=== PATIENT | female | born 1945 | race Hispanic/Latino ===

== ENCOUNTER 2018-07-06 09:08 | Observation (INO) | payer OTHER ==
[2018-07-05 17:07] LABS: APPEARANCE,URINE Clear (CLEAR); BILIRUBIN,URINE Negative (NEGATIVE); COLOR,URINE Dark Yellow (YELLOW); GLUCOSE, URINE (UA) Negative (NEGATIVE); KETONES,URINE Negative (NEGATIVE); LEUKOCYTE ESTERASE ,URINE Negative (NEGATIVE); NITRATE,URINE Positive (NEGATIVE); OCCULT BLOOD,URINE Negative (NEGATIVE); PROTEIN,URINE Negative (NEGATIVE)
[2018-07-05 17:35] LABS: RBC,URINE 0-1 /HPF (0-1)
[2018-07-05 17:36] LABS: BACTERIA,URINE Moderate /HPF (None Seen); SQUAMOUS EPITHELIAL CELL,UR Few /HPF (0-2)
[2018-07-05 17:45] VITALS: BP 175/78
--- NOTE | 2018-07-05 18:05 | NUR ---
UA REPORTED TO DR GARCIA POSITIVE NITRITES IN UA, ORDERS RECEIVED, REPORTED THAT PATIENT HAS A SCRATCH TO LEFT THIGH AREA, DR GARCIA STATED HE WILL EVALUATE IN MORNING, CALL PATIENT TO LET HER KNOW THERE IS A POSSIBILITY SURGERY COULD GET CANCELED
--- NOTE | 2018-07-05 18:18 | NUR ---
PATIENTS SON LORI LUTZ NOTIFIED THAT BECAUSE OF THE SCRATCH TO LEFT THIGH THERE IS A POSSIBILITY THAT SURGERY COULD BE CANCELED, LORI VERBALIZED UNDERSTANDING
[2018-07-06] VITALS (22 sets, daily range): BP systolic 119–170; BP diastolic 57–85
[~2018-07-06] VITALS: Ht 152.4 cm; Wt 84.4 kg
[~2018-07-06 09:08] MED LIST: ACET650T9 PO; CARB15DR54 OP; CYAN25002 SL; FOLI1TAB15 PO; GENTAMICIN SULFATE 240 MG in SODIUM CHLORIDE 0.9% 100 ML IV SCH; HYDR200T4 PO; METO50TA18 PO; SULF500T8 PO; TRAM50TA4 PO
--- NOTE | 2018-07-06 09:41 | NUR ---
POTENTIAL FOR INFECTION: SHAVED LEFT KNEE / LEG FOLLOWED BY WITH WITH [facility]: 2% CHLORHEXIDINE GLUCONATE CLOTH PATIENTS PRE-OP SKIN PREP PER RONEL YODER MA.
[2018-07-06] MEDS ORDERED: LACTATED RINGERS 1000ML 1,000 ML IV ONE (10:10)
[2018-07-06] MEDS: CEFAZOLIN SODIUM 1 GM VIAL ONE ×2 (10:22→13:40)
[2018-07-06] MEDS ORDERED: KETOROLAC TROMETHAMINE 15MG/ML ONE (11:26)
[2018-07-06] MEDS ORDERED: CELECOXIB 200 MG CAP ONE (11:26)
[2018-07-06] MEDS ORDERED: OXYCODONE HCL 10 MG TAB.SR.12H PO ONE (11:26)
[2018-07-06] MEDS ORDERED: ACETAMINOPHEN EXTRA STRENGTH 500 MG TABLET ONE (11:26)
[2018-07-06] MEDS ORDERED: TRANEXAMIC ACID 1000MG/10ML IV ONE ×2 (11:42→16:19)
[2018-07-06] MEDS ORDERED: CEFAZOLIN SODIUM 1 GM VIAL ONE (11:42)
[2018-07-06] MEDS ORDERED: LIDOCAINE PF 2% 5ML ABBOJECT ONE ×2 (13:05→15:34)
[2018-07-06] MEDS ORDERED: NEOSTIGMINE 5MG/5ML SYR IV ONE (13:05)
[2018-07-06] MEDS ORDERED: DEXAMETHASONE SOD PHOSPHATE 10MG/ML 1ML VIAL ONE (13:05)
[2018-07-06] MEDS ORDERED: ONDANSETRON HCL 4 MG/2 ML VIAL ONE (13:05)
[2018-07-06] MEDS ORDERED: MIDAZOLAM HCL 1 MG/ML 2ML VIAL ONE (13:05)
[2018-07-06] MEDS ORDERED: PROPOFOL 10 MG/ML 20ML VIAL IV ONE ×2 (13:05→14:41)
[2018-07-06] MEDS ORDERED: SUCCINYLCHOLINE 200MG/10ML SYR ONE (13:05)
[2018-07-06] MEDS ORDERED: GLYCOPYRROLATE 1 MG/5 ML SYRINGE ONE (13:05)
[2018-07-06] MEDS ORDERED: ROCURONIUM 10MG/1ML SYR 10 MG/ML ML ONE ×2 (13:06→13:59)
[2018-07-06] MEDS ORDERED: FENTANYL CITRATE PF 50 MCG/1 ML 2ML VIAL ONE ×3 (13:06→15:02)
[2018-07-06] MEDS ORDERED: CEFAZOLIN SODIUM 1 GM VIAL IRRIG ONE (14:20)
[2018-07-06] MEDS ORDERED: KETOROLAC TROMETHAMINE 30MG/ML ONE (15:09)
[2018-07-06] MEDS ORDERED: POTASSIUM CHLORIDE 20MEQ/100ML 100 ML IV PRN (15:15)
[2018-07-06] MEDS ORDERED: TRAMADOL HCL 50 MG TABLET PO PRN (15:15)
[2018-07-06] MEDS ORDERED: CALCIUM CARBONATE 500 MG TABLET PO PRN (15:15)
[2018-07-06] MEDS ORDERED: POTASSIUM CHLORIDE 10% ELIXIR 20 MEQ/15 ML UDCUP PO PRN (15:15)
[2018-07-06] MEDS ORDERED: ONDANSETRON HCL 4 MG/2 ML VIAL IVP PRN (15:15)
[2018-07-06] MEDS ORDERED: POTASSIUM CHLORIDE 20 MEQ ERTAB PO PRN (15:15)
[2018-07-06] MEDS ORDERED: OXYCODONE HCL 5 MG TAB PO PRN (15:15)
[2018-07-06] MEDS ORDERED: TEMAZEPAM 15 MG CAPSULE PO PRN (15:15)
[2018-07-06] MEDS ORDERED: KETOROLAC TROMETHAMINE 15MG/ML IV PRN (15:15)
[2018-07-06] MEDS ORDERED: DiphenhydrAMINE HCL 50 MG/ML VIAL IVP PRN (15:15)
[2018-07-06] MEDS ORDERED: FERROUS FUMARATE 324 MG TABLET PO PRN (15:15)
[2018-07-06] MEDS: ACETAMINOPHEN EXTRA STRENGTH 500 MG TABLET PO SCH ×2 (15:15→20:17)
[2018-07-06] MEDS ORDERED: LIDOCAINE HCL-MPF 1% 2ML VIAL IVP PRN (15:15)
--- NOTE | 2018-07-06 17:00 | NUR ---
IA AND REFERRAL MET WITH PT/FAM IN ROOM, S/P TKA, STILL SLEEP BUT APPROPRIATE. PT STATES [facility] WOULD BE GOING TO A FACLITY- LIVES ALONE, INDP OF ADLS , STD WKR, NO OTHER DME, NO HH NO PROV SERVICE,S [facility]ANY[facility] FOR [facility]AMA, REFERRALSENT AND CALL TO [facility] Addendum: 07/07/18 at 7553 by LEONARDO MOREL RN CM Amended: Links added.
--- NOTE | 2018-07-06 17:31 | NUR ---
POST SURGERY PATIENT RECEIVED FROM PACU IN STABLE CONDITION. SHE IS AWAKE AND ALERT. FAMILY IS PRESENT AT BEDSIDE. ALL HAVE BEEN ORIENTED TO ROOM AND USE OF CALL LIGHT. DRESSING TO THE LEFT KNEE IS DRY AND INTACT. IV IS PATENT INFUSING FLUIDS WITH NO REDNESS OR SWELLING NOTED. BED IS IN LOWEST POSITION AND LOCKED WITH PERSONAL BELONGINGS WITHIN REACH. POST OP V/S INITIATED. WILL CONTINUE TO MONITOR.
[2018-07-06] MEDS: OXYCODONE HCL 5 MG TAB PO PRN ×2 (18:35→21:53)
[2018-07-06] MEDS: SODIUM CHLORIDE 0.9% 1000ML 1,000 ML IV SCH (18:37)
[2018-07-06] MEDS ORDERED: CARBOXYMETHYLCELLULOSE SODIUM OP SCH (18:45)
--- NOTE | 2018-07-06 20:00 | NUR ---
nursing obs patient awake, alert, ox3, no sob, no c/o pain at this time, encourage patient to take deep breathing exercises, left knee with beatriz bandage d/i, ble teds and scds in place, family at bedside, teach plan of care and expected outcome,both verbalize understanding via teach back
[2018-07-06] MEDS: FAMOTIDINE 20MG TAB 20 MG TAB PO SCH (20:16)
[2018-07-06] MEDS: CEFAZOLIN SODIUM 1 GM VIAL IVP SCH (20:16)
[2018-07-06] MEDS: ASPIRIN 325 MG TABLET PO SCH (20:16)
[2018-07-06] MEDS: PREGABALIN 25 MG CAP PO SCH (20:16)
[2018-07-06] MEDS: METOPROLOL TARTRATE 50 MG TAB PO SCH (20:16)
[2018-07-06] MEDS: CELECOXIB 200 MG CAP PO SCH (20:17)
[2018-07-06] MEDS: SULFASALAZINE 500 MG TAB.DR PO SCH (20:17)
[2018-07-07] MEDS: SODIUM CHLORIDE 0.9% 1000ML 1,000 ML IV SCH ×2 (00:37→11:08)
[2018-07-07 04:05] VITALS: BP 140/65
[2018-07-07 04:09] LABS: HEMATOCRIT 31.6 % (36-48); MEAN CORPUSCULAR HEMOGLOBIN 31.3 pg (27.0-33.0); MEAN CORPUSCULAR HGB CONC 34.3 g/dL (32.0-36.0); MEAN CORPUSCULAR VOLUME 91.3 fL (79-99); NUCLEATED RED BLOOD CELLS 0.1 % (0.0-0.19); PLATELET COUNT (AUTO) 208 K/uL (130-400); RED BLOOD CELL COUNT(AUTO) 3.46 MIL/uL (4.00-5.50); WHITE BLOOD COUNT (AUTO) 6.2 K/uL (4.8-10.8)
[2018-07-07] MEDS: CEFAZOLIN SODIUM 1 GM VIAL IVP SCH (04:09)
[2018-07-07 04:31] LABS: CREATININE 0.7 mg/dL (0.5-1.5)
[2018-07-07] MEDS: ACETAMINOPHEN EXTRA STRENGTH 500 MG TABLET PO SCH ×2 (06:20→14:52)
--- NOTE | 2018-07-07 08:00 | NUR ---
Pt's last BM 06/29; she stated this is consistent with her history and she has been like this "my entire life"; stated she will go when she feels the urge. Addendum: 07/07/18 at 2037 by SHIRLEY HERNANDEZ RN RN Amended: Links added.
[2018-07-07] MEDS ORDERED: HYDROXYCHLOROQUINE SULFATE 200 MG TAB PO SCH (09:00)
[2018-07-07] MEDS: METOPROLOL TARTRATE 50 MG TAB PO SCH ×2 (09:00→17:24)
[2018-07-07] MEDS ORDERED: CYANOCOBALAMIN (VITAMIN B-12) 1,000 MCG TABLET PO SCH (09:00)
[2018-07-07] MEDS ORDERED: POLYETHYLENE GLYCOL 3350 17 GM POWD.PACK PO SCH (09:00)
[2018-07-07] MEDS ORDERED: FOLIC ACID 1 MG TABLET PO SCH (09:00)
[2018-07-07 09:09] VITALS: BP 106/55
[2018-07-07] MEDS: ASPIRIN 325 MG TABLET PO SCH (09:09)
[2018-07-07] MEDS: FAMOTIDINE 20MG TAB 20 MG TAB PO SCH (09:10)
[2018-07-07] MEDS: CELECOXIB 200 MG CAP PO SCH (09:10)
[2018-07-07] MEDS: OXYCODONE HCL 5 MG TAB PO PRN ×2 (09:11→14:55)
[2018-07-07] MEDS: PREGABALIN 25 MG CAP PO SCH (09:22)
[2018-07-07] MEDS: SULFASALAZINE 500 MG TAB.DR PO SCH ×2 (09:22→14:52)
--- NOTE | 2018-07-07 09:26 | NUR ---
BP this am 106/55, HR 70. Pt has scheduled metoprolol due now. Pt refused. Will continue to monitor.
[2018-07-07 11:35] VITALS: BP 153/86
[2018-07-07] MEDS ORDERED: HYDR-4457 PO (13:02)
[2018-07-07] MEDS ORDERED: NITR100C4 PO (13:02)
[2018-07-07] MEDS ORDERED: ASPI-1012 PO (13:02)
[2018-07-07] MEDS ORDERED: NITROFURANTOIN MONOHYD/M-CRYST 100 MG CAPSULE PO SCH ×2 (16:15→21:00)
[2018-07-07 16:50] VITALS: BP 175/79
--- NOTE | 2018-07-07 17:46 | NUR ---
ACCEPTED AT [facility]- FOR DC THIS EVENING PRIMARY NURSE ADVISED. FOR DC THIS PM
--- NOTE | 2018-07-07 18:59 | NUR ---
Report called to [facility] nurse Daryn Oquendo LVN. Instructed nurse to ensure that pt had follow up appt scheduled in am; to see Dr. Wilson in 3 weeks. Discharge teaching completed in the room with pt and daughter. Emhpasis on Dr. Wilson' orders for activity/physical therapy, incision care (dressing to be removed 07/09 and keep covered, clean and dry), pain medications, and follow up appt needed for 3 weeks. Discussed new rx for macrobid, asa, and norco; emphasis on purpose, route, frequency and duration of treatment, as well as side effects and adverse effects. PIV removed from left forearm; tip intact. Dressed with sterile 2x2 and band aid after hemostasis achieved. Pt wheeled to front lobby by [employer] auto transport driver for transport to their facility via facility van. Pt in stable condition at time of discharge. Daughter at side.
[2018-07-09] MEDS ORDERED: BISACODYL 10 MG SUPP.RECT RC PRN (15:15)
== END 2018-07-07 19:00 ==
LOC: DAH 09:08 → DAHIP 09:09 → DAH 09:09 → 4AH 16:46
PROVIDERS: ADMIT Orthopaedic Surgery; ATTEND Orthopaedic Surgery
DX: M17.12 Unilateral primary osteoarthritis, left knee (principal); G89.29 Other chronic pain; I10 Essential (primary) hypertension; M06.9 Rheumatoid arthritis, unspecified; Z79.899 Other long term (current) drug therapy
CPT/HCPCS: 27447; 36415; 80048; 81001; 85027; 87070; 87076; 87077; 87088; 87186; 87205; 96365; 96375; 96376; 97039; 97116 ×2; 97161; 97530 ×2; A4218; A4600; A4649 ×5; A4930 ×2; A6223; C1763; C1776; G0168; G0378 ×34; G8978; G8979; G8980; G8981; G8982; G8983; J0330; J0690 ×5; J1100; J1580; J1885 ×3; J2001 ×2; J2250; J2405; J2704 ×2; J2710; J3010 ×3; J3490 ×3; J7120 ×2

== ENCOUNTER 2021-02-12 07:54 | Observation (INO) | payer OTHER ==
[2021-02-10 10:30] LABS: BASOPHILS % (AUTO) 0.5 % (0.0-5.0); EOSINOPHILS % (AUTO) 0.2 % (0.0-8.0); HEMATOCRIT 33.1 % (36-48); LYMPHOCYTES % (AUTO) 16.3 % (21.0-51.0); MEAN CORPUSCULAR HEMOGLOBIN 30.8 pg (27.0-33.0); MEAN CORPUSCULAR HGB CONC 32.9 g/dL (32.0-36.0); MEAN CORPUSCULAR VOLUME 93.5 fL (79-99); MONOCYTES % (AUTO) 8.4 % (3.0-13.0); NEUTROPHILS % (AUTO) 74.2 % (40.0-77.0); PLATELET COUNT (AUTO) 277 K/uL (130-400); RED BLOOD CELL COUNT(AUTO) 3.54 MIL/uL (4.00-5.50); RED CELL DISTRIBUTION WIDTH 15.8 % (11.0-15.5); WHITE BLOOD COUNT (AUTO) 5.5 K/uL (4.8-10.8)
[2021-02-10 10:30] LABS: APPEARANCE,URINE Cloudy (CLEAR); BILIRUBIN,URINE Negative (NEGATIVE); COLOR,URINE Dark Yellow (YELLOW); GLUCOSE, URINE (UA) Negative (NEGATIVE); KETONES,URINE Negative (NEGATIVE); LEUKOCYTE ESTERASE ,URINE Moderate (NEGATIVE); NITRATE,URINE Positive (NEGATIVE); OCCULT BLOOD,URINE Negative (NEGATIVE); PROTEIN,URINE POS 1+ mg/dL (NEGATIVE); UROBILINOGEN,URINE 0.2 mg/dL (0.2-1.0)
[2021-02-10 10:41] LABS: INR 1.03 (0.85-1.15); PROTHROMBIN TIME 11.2 SEC (9.6-11.6)
[2021-02-10 10:45] LABS: CREATININE 0.7 mg/dL (0.5-1.5); POTASSIUM 4.2 mmol/L (3.5-5.1)
[2021-02-10 11:10] LABS: RBC,URINE 0-1 /HPF (0-1)
[2021-02-10 11:11] LABS: BACTERIA,URINE Moderate /HPF (None Seen)
[2021-02-11 10:36] VITALS: BP 156/74
[2021-02-12] VITALS (24 sets, daily range): BP systolic 123–155; BP diastolic 56–87
[~2021-02-12] VITALS: Ht 152.4 cm; Wt 90.3 kg
[~2021-02-12 07:54] MED LIST changes: -ACET650T9 PO; +AEC81 PO; +ASCO500C18 PO; -CARB15DR54 OP; +CHOL100046 PO; +CYAN250010 PO; -CYAN25002 SL; -FOLI1TAB15 PO; -GENTAMICIN SULFATE 240 MG in SODIUM CHLORIDE 0.9% 100 ML IV SCH; +IBUP-2070 PO; +METH2.5T6 PO; +SIMV5TAB58 PO
[2021-02-12] MEDS ORDERED: LACTATED RINGERS 1000ML 1,000 ML IV ONE (08:01)
[2021-02-12] MEDS: GENTAMICIN SULFATE 240 MG in 0.9%NACL 100ML 100 ML IV SCH ×4 (08:45→19:54)
[2021-02-12] MEDS ORDERED: CELECOXIB 200 MG CAP ONE (08:53)
[2021-02-12] MEDS ORDERED: ACETAMINOPHEN 500 MG TABLET ONE (08:53)
[2021-02-12] MEDS: CEFAZOLIN SODIUM 1 GM VIAL ONE ×2 (09:11→13:15)
[2021-02-12] MEDS ORDERED: TRANEXAMIC ACID 1000MG/10ML ONE ×2 (12:37→16:05)
[2021-02-12] MEDS ORDERED: CEFAZOLIN SODIUM 1 GM VIAL ONE (12:37)
[2021-02-12] MEDS ORDERED: LIDOCAINE HCL-MPF 1% 5ML AMP IJ ONE (12:55)
[2021-02-12] MEDS ORDERED: PROPOFOL 10 MG/ML 20ML VIAL IV ONE ×2 (12:56→13:55)
[2021-02-12] MEDS ORDERED: ROCURONIUM 10MG/1ML SYR 10 MG/ML ML ONE (12:56)
[2021-02-12] MEDS ORDERED: FENTANYL CITRATE PF 50 MCG/1 ML 2ML VIAL ONE ×2 (12:57→14:03)
[2021-02-12] MEDS ORDERED: ONDANSETRON 4MG INJ ONE (13:32)
[2021-02-12] MEDS ORDERED: TRAMADOL HCL 50 MG TABLET PO PRN (15:30)
[2021-02-12] MEDS ORDERED: LIDOCAINE HCL-MPF 1% 2ML VIAL IV PRN (15:30)
[2021-02-12] MEDS ORDERED: CALCIUM CARB 500MG PO PRN (15:30)
[2021-02-12] MEDS ORDERED: DiphenhydrAMINE HCL 50 MG/ML VIAL IVP PRN (15:30)
[2021-02-12] MEDS ORDERED: FERROUS FUMARATE 324 MG TABLET PO PRN (15:30)
[2021-02-12] MEDS ORDERED: OXYCODONE HCL 5 MG TAB PO PRN (15:30)
[2021-02-12] MEDS ORDERED: ONDANSETRON 4MG INJ IVP PRN (15:30)
[2021-02-12] MEDS ORDERED: KCL 20 MEQ ERTAB PO PRN (15:30)
[2021-02-12] MEDS ORDERED: TEMAZEPAM 15 MG CAPSULE PO PRN (15:30)
[2021-02-12] MEDS: 0.9%NACL 1000ML 1,000 ML IV SCH (15:30)
[2021-02-12] MEDS ORDERED: POTASSIUM CHLORIDE 20MEQ/100ML 100 ML IV PRN (15:30)
[2021-02-12] MEDS: ACETAMINOPHEN 500 MG TABLET PO SCH ×2 (15:30→20:01)
[2021-02-12] MEDS ORDERED: POTASSIUM CHLORIDE 10% ELIXIR 20 MEQ/15 ML UDCUP PO PRN (15:30)
[2021-02-12] MEDS: KETOROLAC 15MG/ML VIAL (15MG/ML) IV PRN (17:56)
[2021-02-12] MEDS: OXYCODONE HCL 5 MG TAB PO PRN (18:50)
[2021-02-12] MEDS ORDERED: ASPIRIN 81MG CHEW TAB ONE (19:47)
[2021-02-12] MEDS: FAMOTIDINE 20MG TAB PO SCH (20:00)
[2021-02-12] MEDS: CELECOXIB 200 MG CAP PO SCH (20:00)
[2021-02-12] MEDS: SULFASALAZINE 500 MG TAB.DR PO SCH (20:00)
[2021-02-12] MEDS: HYDROXYCHLOROQUINE SULFATE 200 MG TAB PO SCH (20:01)
[2021-02-12] MEDS: METOPROLOL TARTRATE 50 MG TAB PO SCH (20:01)
[2021-02-12] MEDS: CEFAZOLIN SODIUM 1 GM VIAL IVP SCH (20:01)
[2021-02-12] MEDS: SIMVASTATIN 10 MG TABLET PO SCH (20:01)
[2021-02-12] MEDS ORDERED: ASPIRIN 81MG CHEW TAB PO ONE (21:00)
[2021-02-13] MEDS: 0.9%NACL 1000ML 1,000 ML IV SCH ×2 (01:27→11:30)
[2021-02-13 03:18] VITALS: BP 129/61
[2021-02-13] MEDS: CEFAZOLIN SODIUM 1 GM VIAL IVP SCH (03:33)
[2021-02-13] MEDS: OXYCODONE HCL 5 MG TAB PO PRN ×2 (03:50→08:00)
[2021-02-13 04:10] LABS: HEMATOCRIT 26.9 % (36-48); MEAN CORPUSCULAR HEMOGLOBIN 30.7 pg (27.0-33.0); MEAN CORPUSCULAR HGB CONC 33.5 g/dL (32.0-36.0); MEAN CORPUSCULAR VOLUME 91.8 fL (79-99); RED BLOOD CELL COUNT(AUTO) 2.93 MIL/uL (4.00-5.50); RED CELL DISTRIBUTION WIDTH 16.3 % (11.0-15.5); WHITE BLOOD COUNT (AUTO) 5.6 K/uL (4.8-10.8)
[2021-02-13 04:21] LABS: CREATININE 0.8 mg/dL (0.5-1.5); POTASSIUM 3.6 mmol/L (3.5-5.1)
[2021-02-13] MEDS: ACETAMINOPHEN 500 MG TABLET PO SCH ×3 (05:36→22:16)
[2021-02-13] MEDS: KETOROLAC 15MG/ML VIAL (15MG/ML) IV PRN (07:59)
[2021-02-13 08:00] VITALS: BP 117/94
[2021-02-13] MEDS: METOPROLOL TARTRATE 50 MG TAB PO SCH ×2 (09:00→20:40)
[2021-02-13] MEDS: SULFASALAZINE 500 MG TAB.DR PO SCH ×2 (09:00→20:39)
[2021-02-13] MEDS: FAMOTIDINE 20MG TAB PO SCH ×2 (10:09→20:40)
[2021-02-13] MEDS: POLYETHYLENE GLYCOL 3350 17 GM POWD.PACK PO SCH (10:09)
[2021-02-13] MEDS: ASPIRIN 81 MG EC TAB PO SCH ×2 (10:09→20:39)
[2021-02-13] MEDS: HYDROXYCHLOROQUINE SULFATE 200 MG TAB PO SCH ×2 (10:09→20:40)
[2021-02-13] MEDS: CELECOXIB 200 MG CAP PO SCH ×2 (10:09→20:39)
[2021-02-13 11:00] VITALS: BP 158/76
[2021-02-13] MEDS ORDERED: KETOROLAC 30MG VIAL (30MG/ML) ONE (13:19)
[2021-02-13 16:00] VITALS: BP 146/68
[2021-02-13 20:00] VITALS: BP 137/69
[2021-02-13] MEDS: SIMVASTATIN 10 MG TABLET PO SCH (20:40)
[2021-02-13] MEDS: GENTAMICIN SULFATE 240 MG in 0.9%NACL 100ML 100 ML IV SCH (22:16)
[2021-02-13] MEDS: NITROFURANTOIN MONOHYD/M-CRYST 100 MG CAPSULE PO SCH (22:16)
[2021-02-14] VITALS: BP 117/84
[2021-02-14 04:06] VITALS: BP 154/73
[2021-02-14] MEDS: ACETAMINOPHEN 500 MG TABLET PO SCH ×2 (05:52→15:35)
[2021-02-14] MEDS: CELECOXIB 200 MG CAP PO SCH (07:49)
[2021-02-14] MEDS: POLYETHYLENE GLYCOL 3350 17 GM POWD.PACK PO SCH (07:49)
[2021-02-14] MEDS: METOPROLOL TARTRATE 50 MG TAB PO SCH (07:49)
[2021-02-14] MEDS: NITROFURANTOIN MONOHYD/M-CRYST 100 MG CAPSULE PO SCH (07:49)
[2021-02-14] MEDS: HYDROXYCHLOROQUINE SULFATE 200 MG TAB PO SCH (07:49)
[2021-02-14] MEDS: ASPIRIN 81 MG EC TAB PO SCH (07:49)
[2021-02-14] MEDS: FAMOTIDINE 20MG TAB PO SCH (07:49)
[2021-02-14 08:00] VITALS: BP 137/71
[2021-02-14] MEDS: SULFASALAZINE 500 MG TAB.DR PO SCH (08:00)
[2021-02-14 12:00] VITALS: BP 132/73
[2021-02-14] MEDS ORDERED: AEC81 PO (15:55)
[2021-02-14] MEDS ORDERED: HYDR-4060 PO (15:55)
[2021-02-14] MEDS ORDERED: NITR100C4 PO (15:58)
[2021-02-14 16:00] VITALS: BP 140/75
[2021-02-15] MEDS ORDERED: BISACODYL 10 MG SUPP.RECT RC PRN (15:30)
== END 2021-02-14 18:45 ==
LOC: DAH 07:54 → DAHIP 07:55 → DAH 07:55 → 4BH 17:32
PROVIDERS: ADMIT Orthopaedic Surgery; ATTEND Orthopaedic Surgery
DX: M06.861 Other specified rheumatoid arthritis, right knee (principal); Z20.822 Contact with and (suspected) exposure to COVID-19; N39.0 Urinary tract infection, site not specified; B96.1 Klebsiella pneumoniae [K. pneumoniae] as the cause of diseases classified elsewhere; I10 Essential (primary) hypertension; M65.9 Synovitis and tenosynovitis, unspecified; Z96.652 Presence of left artificial knee joint; Z79.899 Other long term (current) drug therapy
CPT/HCPCS: 27335; 27447; 36415 ×2; 64447; 76942; 80048 ×2; 81001; 85025; 85027; 85610; 87077; 87088; 87186; 87635; 87641; 88305; 88311; 96365; 96375; 96376; 97039 ×4; 97116 ×4; 97161; 97530 ×4; A4215; A4221; A4222; A4223 ×2; A4649 ×5; A4657; A4663; A4930 ×4; A5120; A9272; C1776; C9803; G0378 ×47; J0690 ×4; J1580; J1885 ×4; J2405; J2704 ×2; J3010 ×2; J3490 ×3; J7120 ×2

== ENCOUNTER → 2021-07-14 | Outpatient (CLI) | payer OTHER, MEDICARE ==
[~2021-07-14] MED LIST changes: +HYDR-4060 PO; +NITR100C4 PO; -TRAM50TA4 PO
== END | disposition home or self-care (01) ==
LOC: RAH 11:53
PROVIDERS: ATTEND Internal Medicine
DX: Z12.31 Encounter for screening mammogram for malignant neoplasm of breast (principal); N63.10 Unspecified lump in the right breast, unspecified quadrant; N63.20 Unspecified lump in the left breast, unspecified quadrant
CPT/HCPCS: 77067